=== PATIENT | male | born 1960 | race Caucasian/White ===

== ENCOUNTER 2021-02-09 09:51 | Emergency (ER) | payer BC, SELFPAY ==
--- NOTE | 2021-02-09 10:06 | ED.LOWEXIN ---
HPI - Extremity Injury (Lower) General Chief Complaint: Extremity Injury, Lower Stated Complaint: Left leg injury Time Seen by Provider: 02/09/21 10:06 Source: patient and RN notes reviewed History of Present Illness HPI Narrative: Patient is a 60-year-old male who presents the urgent care with complaints of pain radiating from the left buttocks down to the left knee. Patient states is been ongoing for approximately 5 to 6 days and has worsened over the last 24 hours. Patient states that pain exacerbated with any weightbearing or bending of the waist. 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 Patient states he is also been helping his put up [employer] decorations. Denies of any known injury or fall. States that he has had this pain in the past approximately 10 or 15 years ago and believes he was treated with steroids at that time. Patient denies of any chest pain or shortness of breath. No other acute complaints. No acute distress noted. Patient has been taking ibuprofen and using Biofreeze with mild pain improvements. Patient aware of the plan of care. Some parts of this dictation were generated by voice recognition software and may contain typographical and/or grammatical inaccuracies. Related Data Home Medications Medication Instructions Recorded Confirmed aspirin 81 mg PO DAILY 02/09/21 02/09/21 escitalopram oxalate 10 mg PO DAILY 02/09/21 02/09/21 icosapent ethyl 1 g PO QID 02/09/21 02/09/21 lisinopril 40 mg PO DAILY 02/09/21 02/09/21 metformin 1,000 mg PO BID 02/09/21 02/09/21 metoprolol succinate 50 mg PO DAILY 02/09/21 02/09/21 rosuvastatin 5 mg PO DAILY 02/09/21 02/09/21 semaglutide [Ozempic] See Rx Instructions .ROUTE .COMPLEX 02/09/21 02/09/21 umeclidinium-vilanterol [Anoro INHALATION 02/09/21 Ellipta] Allergies Allergy/AdvReac Type Severity Reaction Status Date / Time No Known Allergies Allergy Verified 02/09/21 10:20 Review of Systems Review of Systems: CONSTITUTIONAL: Denies fever, chills, or sweats. EYES: Denies visual changes, redness, or discharge. ENT: Denies rhinorrhea, congestion, sore throat, or otalgia. CARDIOVASCULAR: Denies chest pain, palpitations, or edema. RESPIRATORY: Denies cough or dyspnea. GASTROINTESTINAL: Denies abdominal pain, nausea, vomiting, or diarrhea. GENITOURINARY: Denies dysuria or hematuria. SKIN: Denies rash or itching. MUSCULOSKELETAL: Reports of pain radiating from the left buttocks down to the left knee NEUROLOGIC: Denies headache, numbness, or weakness. All other systems reviewed are negative, except as documented in HPI. PMFSH Comments At the time of my signature, I reviewed and agree with the nursing past medical, surgical, social, and family history. There is no relevant family history pertinent to the patient complaint. Exam Narrative: GENERAL: This is a well-nourished, well-developed patient, in no apparent distress. HEAD: normocephalic, atraumatic. EYES: PERRL. Sclera clear/white. Vision is grossly intact. EARS: External ears normal NOSE: External nose normal with no obvious nasal discharge, nares without redness, no rhinorrhea. THROAT: Mucous membranes moist NECK: Neck supple CARDIOVASCULAR: Regular rate and rhythm without murmurs, gallops, or rubs. RESPIRATORY: Clear to auscultation. Breath sounds equal bilaterally. No wheezes, rales, or rhonchi. SKIN: warm, intact with no suspicious lesions or rash, good texture and turgor. NEURO: awake, alert, and oriented to person, place and time. There were no obvious focal neurologic abnormalities. EXTREMITIES: No clubbing, cyanosis, or edema. Left lower extremity within normal limits. Positive strong left pedal pulse with capillary refill less than 2 seconds. No calf tenderness. Negative left Homans sign bilaterally. BACK: Nontender without deformity or crepitance. No flank tenderness. Positive left SLE Course Vital Signs Vital signs: Vital Signs T
[2021-02-09 10:12] VITALS: BP 165/66; PULSE 67; RESP 22; TEMP 36.7; O2SAT 98
== END 2021-02-09 10:35 | disposition home or self-care (01) ==
PROVIDERS: Emergency Provider Nurse Practitioner Family
DX: M54.32 Sciatica, left side (principal); I25.2 Old myocardial infarction; J44.9 Chronic obstructive pulmonary disease, unspecified; G47.30 Sleep apnea, unspecified; Z95.5 Presence of coronary angioplasty implant and graft
CPT/HCPCS: 99203; G0463